=== PATIENT | male | born 1990 | race Caucasian/White ===

== ENCOUNTER 2017-06-28 19:19 | Emergency (ER) | payer BC, OTHER ==
[2017-06-28 19:37] VITALS: BP 124/82
[2017-06-28] MEDS ORDERED: Diphtheria,Pertussis(Acell),Tetanus Vaccine 0.5 ML SDV IM ONE (19:42)
[2017-06-28] MEDS ORDERED: Lidocaine 1% 30 ML SDV INJECT ONE (22:42)
[2017-06-28] MEDS ORDERED: Bacitracin Oint 1 GM U/D Packet TOP ONE (22:43)
--- NOTE | 2017-06-29 00:17 | EDM.PDOC ---
ED HPI GENERAL MEDICAL PROBLEM - General Chief Complaint: Skin Complaint Stated Complaint: [id number] cut hand Time Seen by Provider: 06/28/17 22:00 Source of Information: Reports: Patient History Limitations: Reports: No Limitations - History of Present Illness INITIAL COMMENTS - FREE TEXT/NARRATIVE: laceration to left hand around 8 pm while placing new blade on to ice auger. Right Hand Pain Score (Numeric/FACES): 3 - Related Data Allergies Allergy/AdvReac Type Severity Reaction Status Date / Time No Known Allergies Allergy Verified 06/28/17 19:37 Home Meds: Home Meds Multivitamin [Multi-Vitamin Daily] 1 tab PO DAILY 04/03/13 [History] Past Medical History - Past Health History Medical/Surgical History: Denies Medical/Surgical History - Past Surgical History Musculoskeletal Surgical History: Reports: Other (See Below) Other Musculoskeletal Surgeries/Procedures:: Rt. shoulder broken. Social & Family History - Family History Family Medical History: Noncontributory - Tobacco Use Smoking Status *Q: Current Every Day Smoker Years of Tobacco use: 10 Packs/Tins Daily: 0.5 - Recreational Drug Use Recreational Drug Use: No ED ROS GENERAL - Review of Systems Review Of Systems: See Below ED EXAM, SKIN/RASH Exam: See Below Exam Limited By: No Limitations General Appearance: Alert, No Apparent Distress Eye Exam: Left Eye: Papilledema, Bilateral Eye: Abnormal EOM Ears: Normal External Exam Nose: Normal Inspection Throat/Mouth: Normal Inspection Head: Atraumatic, Normocephalic Neurological: Normal Reflexes Skin: Dry, Intact Location, Skin: Upper Extremity, Right (HAND , PALMAR SURFACE) ED SKIN PROCEDURES - Laceration/Wound Repair Right Hand Lac/Wound length In cm: 2 Appearance: Subcutaneous Distal NVT: Neuro & Vascular Intact Local Anesthesia - Lidocaine (Xylocaine): 1% Plain Local Anesthetic Volume: 2cc Skin Prep: Chlorhexidine (Hibiciens), Saline Exploration/Debridement/Repair: Wound Explored Closed with: Sutures Suture Size: 4-0 # of Sutures: 4 Suture Type: Nylon, Interrupted Suture Size: 4-0 # of Sutures: 2 Drain Placement: No Sterile Dressing Applied: Nurse Tetanus Status Addressed: Yes Course - Vital Signs Last Recorded V/S: Last Vital Signs Temp 97.6 F 06/28/17 19:32 Pulse 85 06/28/17 19:32 Resp 16 06/28/17 19:32 BP 124/82 06/28/17 19:32 Pulse Ox 98 06/28/17 19:32 - Orders/Labs/Meds Orders: Active Orders 24 hr Category Date Time Status Vaccines to be Administered [RC] PER UNIT ROUTINE Care 06/28/17 19:43 Active Meds: Medications Discontinued Medications Generic Name Dose Route Start Last Admin Trade Name Omid PRN Reason Stop Dose Admin Bacitracin 1 dose 06/28/17 22:43 06/28/17 23:26 Bacitracin Oint 1 Gm TOP 06/28/17 22:44 1 dose ONETIME ONE Administration Diphtheria/Tetanus/Acell Pertussis 0.5 ml 06/28/17 19:42 06/28/17 21:32 Adacel IM 06/28/17 19:43 0.5 ml .ONCE ONE Administration Lidocaine HCl 30 ml 06/28/17 22:42 06/28/17 23:25 Xylocaine-Mpf 1% INJECT 06/28/17 22:43 30 ml ONETIME ONE Administration Departure - Departure Time of Disposition: 00:12 Disposition: Home, Self-Care 01 Condition: Good Clinical Impression: Laceration - Discharge Information Instructions: Laceration Care, Adult, [facility] Referrals: PCP,None [Primary Care Provider] - Forms: ED Department Discharge Additional Instructions: keep clean and dry, may change dressing tomorrow afternoon then twice daily monitor and follow up if any signs of infection, redness drainage, or swelling tylenol for discomfort sutures out 10-14 days in clinic - My Orders Last 24 Hours: My Active Orders 06/28/17 19:43 Vaccines to be Administered [RC] PER UNIT ROUTINE - Assessment/Plan Last 24 Hours: My Active Orders 06/28/17 19:43 Vaccines to be Administered [RC] PER UNIT ROUTINE
== END 2017-06-29 00:21 | disposition home or self-care (01) ==
LOC: DL.ED 19:19
DX: S61.411A Laceration without foreign body of right hand, initial encounter (principal); F17.210 Nicotine dependence, cigarettes, uncomplicated; Z23 Encounter for immunization; W26.8XXA Contact with other sharp object(s), not elsewhere classified, initial encounter
CPT/HCPCS: 12001; 90471; 90715; 99283